=== PATIENT | male | born 1955 | race Caucasian/White ===

== ENCOUNTER 2017-02-14 16:32 | Emergency (ER) | payer OTHER ==
[2017-02-14 17:55] LABS: HEMOGLOBIN 14.1 gm/dl (14.0-17.5); RED BLOOD COUNT 4.15 M/UL (4.20-5.50); WHITE BLOOD COUNT 7.4 K/UL (4.5-11.0)
[2017-02-14 18:19] LABS: BUN/CREATININE RATIO 8 (0-10)
== END 2017-02-14 21:30 | disposition home or self-care (01) ==
LOC: ER1 16:32
PROVIDERS: Emergency Medicine
DX: J44.1 Chronic obstructive pulmonary disease with (acute) exacerbation (principal); Z79.899 Other long term (current) drug therapy
CPT/HCPCS: 36415; 36600; 71010; 80053; 82550; 82553; 82803; 83874; 84484; 85025; 93005; 94640; 94664; 96374; 99285; J2930

== ENCOUNTER → 2020-12-07 | Outpatient (CLI) | payer MEDICARE, OTHER ==
[~2020-12-07] MED LIST: ADVAIR 250-501 EACH INH; AMITIZA24 MCG PO; ASPIR 8181 MG PO; CITRATE OF MAG296 ML PO; CLEOCIN HCL300 MG PO; DIGOXIN250 MCG PO; ELIQUIS 5 MG TAB5 MG PO; ELIQUIS5 MG PO; FAMOTIDINE20 MG PO; FINASTERIDE5 MG PO; FLOMAX 0.4 MG0.4 MG PO; FOLIC ACID 1 MG1 MG PO; FUROSEMIDE20 MG PO; GABAPENTIN600 MG PO; IPRAT-ALBUT 0.5-3 ML INH; KEFLEX CAP 500500 MG PO; LISINOPRIL5 MG PO; LOPRESSOR 50 MG50 MG PO; METOPROLOL TART50 MG PO; MIRTAZAPINE30 MG PO; MONTELUKAST SOD10 MG PO; NICOTINE PATCH1 EAC2 TOP; PERCOCET 10-321 EACH PO; POTASSIUM CHLO20 ME2 PO; PROAIR DIGIHAL90 MCG INH; SERTRALINE HCL100 MG PO; SIMVASTATIN20 MG PO; SPIRIVA RESPIMAT4 GM INH; SYMBICORT 160-1 INHA INH; VITAMIN B-1100 M1 PO
== END ==
LOC: HEART 5 12-06 14:00
DX: M79.606 Pain in leg, unspecified (principal)

== ENCOUNTER 2021-04-09 09:38 | Inpatient (IN) | payer MEDICARE ==
[~2021-04-09] VITALS: Ht 185.4 cm; Wt 77.1 kg
[~2021-04-09 09:38] MED LIST changes: -AMITIZA24 MCG PO; -CITRATE OF MAG296 ML PO; -CLEOCIN HCL300 MG PO; -ELIQUIS5 MG PO; -FINASTERIDE5 MG PO; -FLOMAX 0.4 MG0.4 MG PO; -METOPROLOL TART50 MG PO; -SIMVASTATIN20 MG PO; -SPIRIVA RESPIMAT4 GM INH; -SYMBICORT 160-1 INHA INH
[2021-04-09 11:32] LABS: HEMOGLOBIN 12.2 gm/dl (14.0-17.5); RED BLOOD COUNT 4.34 M/UL (4.20-5.50)
[2021-04-09 11:58] LABS: BUN/CREATININE RATIO 34 (0-10)
[2021-04-09] MEDS ORDERED: ELIQUIS5 MG PO (14:49)
[2021-04-09] MEDS ORDERED: METOPROLOL TART50 MG PO (14:49)
[2021-04-09] MEDS ORDERED: FLOMAX 0.4 MG0.4 MG PO (14:51)
[2021-04-09] MEDS ORDERED: SPIRIVA RESPIMAT4 GM INH (14:51)
[2021-04-09] MEDS ORDERED: FINASTERIDE5 MG PO (14:52)
[2021-04-09] MEDS ORDERED: SIMVASTATIN20 MG PO (14:53)
[2021-04-09] MEDS ORDERED: POTASSIUM CHLO20 ME2 PO (14:54)
[2021-04-09] MEDS ORDERED: FAMOTIDINE20 MG PO (14:55)
[2021-04-09] MEDS ORDERED: AMITIZA24 MCG PO (14:55)
--- NOTE | 2021-04-10 04:23 | NUR ---
@2100- VERIFIED WITH PHARMACY ABOUT DOXYCYCLINE ALERT OF SEVERE REACTION WITH DIGOXIN ON THE PATIENTS EMAR. PHARMACY ADVISED TO GET A DIGOXIN LEVEL BEFORE ADMINISTERING MEDICATION BUT THAT THE PATIENT HAD RECIEVED A DOSE IN THE EMERGENCY DEPARTMENt. 2114- CLARIFIED ORDER WITH DR. NUNO WHICH CLARIFIED IT WAS OKAY TO ADMNISTER MEDICATION NOW AND DRAW DIGOXIN LEVELS WITH MORNING LAB DRAW. 2337- NOTIFIED DR. NUNO OF PATIENT EXPERIENCING TACHYCARDIA UP TO 130'S AND IN ATRIAL FIBRILATION RHYTHM AND THAT PATIENT HAD A HISTORY OF ATRIAL FIBRILATION. HE ORDERED A STAT EKG AND 5MG IV LOPRESSOR EVERY FIVE MINUTES TIMES THREE DOSES. 113- NOTIFIED DR. NUNO OF EKG RESULTS SHOWING ATRIAL FIBRILATION WITH RAPID VENTRICULAR RESPONSE. PT WAS EXPERIENCING TACHYCARDIA OF 100-130'S BUT NOT SUSTAINING THERE. DR. NUNO ORDERED TO CONTINUE TO MONITOR THE PATIENT AND TO NOTIFY HIM IF HE SUSTAINED A TACHYCARDIC 120 OR GREATER BPM.
[2021-04-10 06:22] LABS: RED BLOOD COUNT 3.74 M/UL (4.20-5.50); WHITE BLOOD COUNT 11.1 K/UL (4.5-11.0)
[2021-04-10 06:41] LABS: BUN/CREATININE RATIO 37 (0-10)
[2021-04-10 13:10] LABS: ACINETOBACTER BAUMANNII Not Detected (Negative); CANDIDA ALBICANS Not Detected (Negative); CANDIDA KRUSEI Not Detected (Negative); CANDIDA TROPICALIS Not Detected (Negative); ENTEROCOCCUS Not Detected (Negative); ESCHERICHIA COLI Not Detected (Negative); HAEMOPHILUS INFLUENZAE Not Detected (Negative); KLEBSIELLA OXYTOCA Not Detected (Negative); KLEBSIELLA PNEUMONIAE Not Detected (Negative); KPC-CARBAPENEM-RESISTANCE GENE Not Detected (Negative); PROTEUS Not Detected (Negative); PSEUDOMONAS AERUGINOSA Not Detected (Negative); SERRATIA MARCESANS Not Detected (Negative); STAPHYLOCOCCUS Not Detected (Negative); STAPHYLOCOCCUS AUREUS Not Detected (Negative); STREP AGALACTIAE (GROUP B) Not Detected (Negative); STREP PYOGENES (GROUP A) Not Detected (Negative); mecA (METHICILLIN RESIST GENE Not Detected (Negative); vanA/B (VANCOMYCIN RESIST GENE Not Detected (Negative)
[2021-04-10 14:37] LABS: STREPTOCOCCUS DETECTED (Negative)
[2021-04-11 03:19] LABS: HEMOGLOBIN 10.3 gm/dl (14.0-17.5); RED BLOOD COUNT 3.54 M/UL (4.20-5.50); WHITE BLOOD COUNT 9.7 K/UL (4.5-11.0)
[2021-04-11 03:47] LABS: BUN/CREATININE RATIO 33 (0-10)
--- NOTE | 2021-04-11 07:59 | NUR ---
RN administered 8 am dose of metoprolol for tachycardia. RN notified Dr. Whiting of patient's elevated HR and informed MD that metoprolol had been administered and patient heart rate had decreased since rest was encouraged and metoprolol was administered. MD instructed RN to monitor heart rate and notify him if it didn't continue to decrease.
--- NOTE | 2021-04-11 11:45 | NUR ---
RN GAVE DAILY UPDATE ON PATIENT TO PA, MADE HIM AWARE THAT PATIENT HAD BEEN TACHYCARDIC EARLIER THIS SHIFT AND DR. CULP WAS AWARE. PA WENT TO PATIENT'S ROOM AND NOTED THAT HE WAS HAVING SOME DIFFICULTY BREATHING AND NOTIFIED DR. CULP.
--- NOTE | 2021-04-11 12:12 | NUR ---
TELEMETRY CALLED RN ABOUT PATIENT HAVING 5 BEAT RUN OF NSVT. RN CONTACTED DR. CULP. NO NEW ORDERS NOTED.
--- NOTE | 2021-04-11 12:30 | NUR ---
RN NOTIFIED SUPERVISOR [employer]AL[employer] AND DIRECTOR OF CASEWORK KISHAN OF NEW ORDERS TO TRANSFER PATIENT TO ICU. RT CALLED ABOUT NEW ORDERS TO APPLY BIPAP TO PATIENT PER DR. DIEGO CALIXTO. APPLIED. PATIENT TOLERATING WELL. PENDING OPEN BED FOR ICU TRANSFER. MORPHINE ADMINISTERED PER PRN ORDER. PATIENT NOTED TO BE RESTING COMFORTABLY IN BED WITH AT BEDSIDE.
--- NOTE | 2021-04-11 13:38 | NUR ---
REPORT CALLED TO ICU, PATIENT TRANSFERRED TO UNIT.
[2021-04-12 07:01] LABS: HEMOGLOBIN 10.5 gm/dl (14.0-17.5); RED BLOOD COUNT 3.65 M/UL (4.20-5.50)
[2021-04-12 07:05] LABS: WHITE BLOOD COUNT 15.2 K/UL (4.5-11.0)
[2021-04-12 07:20] LABS: BUN/CREATININE RATIO 27 (0-10)
[2021-04-13 04:29] LABS: HEMOGLOBIN 11.5 gm/dl (14.0-17.5); RED BLOOD COUNT 3.95 M/UL (4.20-5.50); WHITE BLOOD COUNT 12.4 K/UL (4.5-11.0)
[2021-04-13 04:48] LABS: BUN/CREATININE RATIO 20 (0-10)
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
[2021-04-14 06:21] LABS: HEMOGLOBIN 10.4 gm/dl (14.0-17.5); RED BLOOD COUNT 3.64 M/UL (4.20-5.50); WHITE BLOOD COUNT 11.9 K/UL (4.5-11.0)
[2021-04-14 06:39] LABS: BUN/CREATININE RATIO 16 (0-10)
[2021-04-15 04:53] LABS: BUN/CREATININE RATIO 17 (0-10)
[2021-04-15] MEDS ORDERED: IPRAT-ALBUT 0.5-3 ML INH (11:34)
[2021-04-15] MEDS ORDERED: SYMBICORT 160-1 INHA INH (11:34)
[2021-04-15] MEDS ORDERED: CLEOCIN HCL300 MG PO (11:34)
[2021-04-15] MEDS ORDERED: ELIQUIS5 MG PO (11:48)
== END 2021-04-15 13:40 | disposition home or self-care (01) | DRG 871 ==
LOC: ER1 09:38 → MED SURG 4 13:20 → CDU 13:20 → MED SURG 4 14:43 → CCU 04-11 14:15 → MED SURG 4 04-13 10:28
PROVIDERS: Internal Medicine Infectious Disease; Internal Medicine Pulmonary Disease; Physician Assistant; ADMIT Internal Medicine
PROC: 5A0945A Assistance with Respiratory Ventilation, 24-96 Consecutive Hours, High Flow/Velocity Cannula (ICD-10-PCS; 2021-04-10)
PROC: B24BZZ4 Ultrasonography of Heart with Aorta, Transesophageal (ICD-10-PCS; principal; 2021-04-11)
DX: A40.8 Other streptococcal sepsis (principal); J69.0 Pneumonitis due to inhalation of food and vomit; J15.4 Pneumonia due to other streptococci; J96.21 Acute and chronic respiratory failure with hypoxia; J96.22 Acute and chronic respiratory failure with hypercapnia; J44.1 Chronic obstructive pulmonary disease with (acute) exacerbation; J44.0 Chronic obstructive pulmonary disease with (acute) lower respiratory infection; F11.20 Opioid dependence, uncomplicated; I31.3 Pericardial effusion (noninflammatory); I48.20 Chronic atrial fibrillation, unspecified; I42.9 Cardiomyopathy, unspecified; Z20.822 Contact with and (suspected) exposure to COVID-19; E87.6 Hypokalemia; I27.20 Pulmonary hypertension, unspecified; F10.10 Alcohol abuse, uncomplicated; E78.5 Hyperlipidemia, unspecified; N40.0 Benign prostatic hyperplasia without lower urinary tract symptoms; D63.8 Anemia in other chronic diseases classified elsewhere; I07.1 Rheumatic tricuspid insufficiency; J60 Coalworker's pneumoconiosis; G89.4 Chronic pain syndrome; F17.210 Nicotine dependence, cigarettes, uncomplicated; I48.0 Paroxysmal atrial fibrillation; K59.00 Constipation, unspecified; Z79.01 Long term (current) use of anticoagulants; Z99.81 Dependence on supplemental oxygen; Z86.73 Personal history of transient ischemic attack (TIA), and cerebral infarction without residual deficits; Z88.0 Allergy status to penicillin; Z84.89 Family history of other specified conditions; Z79.82 Long term (current) use of aspirin; Z79.899 Other long term (current) drug therapy
CPT/HCPCS: ECHO; 0240U; 36415; 36600; 71045; 80048; 80053; 80162; 80202; 82550; 82553; 82803; 83605; 83735; 83880; 84484; 85025; 86140; 87040; 87077; 87150; 87186; 93005; 93306; 94640; 94660; 94664; 94760; 96374; 96375; 99285; J0692; J1650; J1885; J2270; J2405; J2920; J2930; J3370; J7030; J7070

== ENCOUNTER 2021-05-23 10:55 | Emergency (ER) | payer MEDICARE ==
[~2021-05-23 10:55] MED LIST changes: +AMITIZA24 MCG PO; +CLEOCIN HCL300 MG PO; +ELIQUIS5 MG PO; +FINASTERIDE5 MG PO; +FLOMAX 0.4 MG0.4 MG PO; +METOPROLOL TART50 MG PO; +SIMVASTATIN20 MG PO; +SPIRIVA RESPIMAT4 GM INH; +SYMBICORT 160-1 INHA INH
[2021-05-23 12:01] LABS: RED BLOOD COUNT 3.64 M/UL (4.20-5.50); WHITE BLOOD COUNT 8.8 K/UL (4.5-11.0)
[2021-05-23 12:49] LABS: BUN/CREATININE RATIO 17 (0-10)
[2021-05-23] MEDS ORDERED: CITRATE OF MAG296 ML PO (17:07)
== END 2021-05-23 17:50 | disposition home or self-care (01) ==
LOC: ER1 10:55
PROVIDERS: Emergency Medicine
DX: K92.1 Melena (principal); K59.00 Constipation, unspecified; R15.9 Full incontinence of feces; K92.2 Gastrointestinal hemorrhage, unspecified; J44.9 Chronic obstructive pulmonary disease, unspecified; I48.91 Unspecified atrial fibrillation; I11.9 Hypertensive heart disease without heart failure; F17.200 Nicotine dependence, unspecified, uncomplicated; Z79.01 Long term (current) use of anticoagulants
CPT/HCPCS: 36600; 71045; 80053; 81001; 82272; 82550; 82553; 82803; 83605; 83690; 84484; 85025; 85610; 85730; 86850; 86900; 86901; 93005; 96374; 96375; 99285; J2270; J2405; Q9967

== ENCOUNTER → 2022-06-21 | Outpatient (CLI) | payer MEDICARE ==
[~2022-06-21] MED LIST changes: +CITRATE OF MAG296 ML PO
== END ==
LOC: NM 12:52
DX: Z01.810 Encounter for preprocedural cardiovascular examination (principal); I20.9 Angina pectoris, unspecified
CPT/HCPCS: 78452; 93017; A9502; J2785